=== PATIENT | male | born 1995 | race American Indian/Alaskan Native ===

== ENCOUNTER 2016-12-21 11:01 | Emergency (ER) | payer MEDICAID, OTHER ==
[2016-12-21 11:02] VITALS: BMI 34.8
[2016-12-21 11:10] VITALS: RESP 18
--- NOTE | 2016-12-21 11:20 | C.PDOC ---
History Of Present Illness 21M c/o right ankle pain after he jumped 10ft out of a window about 1 hour ago. he has not attempted to bear weight on the right foot. denies any head injury or pain anywhere else. - HPI Time Seen by Provider: 12/21/16 11:14 Chief Complaint (Nursing): Trauma Past Medical History Vital Signs: Last Vital Signs Temp 98 F 12/21/16 11:05 Pulse 79 12/21/16 11:05 Resp 18 12/21/16 11:05 BP 114/80 12/21/16 11:05 Pulse Ox 99 12/21/16 11:24 - Medical History PMH: Asthma (last episode when 8 years old) Denies: Chronic Kidney Disease Family History: States: Other Other Family History: nc - Social History Hx Tobacco Use: No Hx Alcohol Use: Yes Hx Substance Use: No - Immunization History Hx Tetanus Toxoid Vaccination: No Hx Influenza Vaccination: No Hx Pneumococcal Vaccination: No Review Of Systems Constitutional: Negative for: Fever Cardiovascular: Negative for: Chest Pain Respiratory: Negative for: Cough, Shortness of Breath Gastrointestinal: Negative for: Vomiting, Abdominal Pain Musculoskeletal: Negative for: Neck Pain Neurological: Negative for: Weakness, Numbness, Headache Physical Exam - Physical Exam Appears: Well, Non-toxic, No Acute Distress Skin: Warm, Dry, Other (superifical abrasion on the right forearm) Head: Atraumatic, No Swelling, No Abrasion, No Laceration Eye(s): bilateral: PERRL, EOMI Nose: No Epistaxis Neck: Normal ROM, No Midline Cervical Tenderness Chest: No Tenderness, No Ecchymosis, No Subcutaneous Emphysema Cardiovascular: Rhythm Regular Respiratory: No Decreased Breath Sounds, No Accessory Muscle Use Gastrointestinal/Abdominal: Soft, No Tenderness Extremity: Normal ROM, No Deformity, Other (right ankle- mild edema, ttp anterior and lower anterior half of tib) Pulses: Right Dorsalis Pedis: Normal Neurological/Psych: Oriented x3, Normal Motor, Normal Sensation, Other (no focal deficits) ED Course And Treatment O2 Sat by Pulse Oximetry: 99 Medical Decision Making Medical Decision Making: jessica wrap crutches nsaid pcp follow up xr r ankle- no acute fracture Right tibia and fibula four views History: Fall and pain. Comparison: None available. Findings: No evidence of acute displaced fracture or dislocation of the tibia and fibula. On the lateral view, a bony ossific density is seen within the dorsal aspect of the midfoot, nonspecific. Clinical correlation. Impression: No evidence of acute displaced fracture or dislocation of the tibia and fibula. On the lateral view, a bony ossific density is seen within the dorsal aspect of the midfoot, nonspecific. Clinical correlation. If pain persists, consider MRI Disposition - Disposition Disposition: HOME/ ROUTINE Disposition Time: 12:17 Condition: GOOD - Clinical Impression Clinical Impression: Ankle sprain
[2016-12-21] MEDS ORDERED: Bacitracin 500 Units/gm Oint Foilpak UD ONE (11:40)
--- NOTE | 2016-12-21 12:07 | RAD ---
Right tibia and fibula four views History: Fall and pain. Comparison: None available. Findings: No evidence of acute displaced fracture or dislocation of the tibia and fibula. On the lateral view, a bony ossific density is seen within the dorsal aspect of the midfoot, nonspecific. Clinical correlation. Impression: No evidence of acute displaced fracture or dislocation of the tibia and fibula. On the lateral view, a bony ossific density is seen within the dorsal aspect of the midfoot, nonspecific. Clinical correlation. If pain persists, consider MRI.
[2016-12-21 13:12] VITALS: BP 120/78; PULSE 84; TEMP 98.3; O2SAT 98
--- NOTE | 2016-12-21 16:06 | RAD ---
Right ankle three views History: Fall and pain. Comparison: None available. Findings: Ankle mortise maintained. Talar dome intact. No significant soft tissue swelling. On the lateral view, a bony ossific density is seen within the dorsal aspect of the midfoot, nonspecific. Clinical correlation. Impression: On the lateral view, a bony ossific density is seen within the dorsal aspect of the midfoot, nonspecific. Clinical correlation. If pain persists, consider MRI.
== END 2016-12-21 13:14 | disposition home or self-care (01) ==
LOC: C.ER 11:01
DX: M25.571 Pain in right ankle and joints of right foot (principal)